=== PATIENT | male | born 1980 | race Caucasian/White ===

== ENCOUNTER 2016-08-31 03:52 | Emergency (ER) | payer SELFPAY ==
[2016-08-31 04:51] VITALS: TEMP 98.5; BMI 30.5
[2016-08-31 05:35] LABS: AUTOMATED BASOPHIL 0.7 % (0-2); AUTOMATED EOSINOPHIL 2.7 % (0-5); AUTOMATED LYMPH 18.1 % (17-44); AUTOMATED MONOCYTE 5.8 % (3-10); AUTOMATED NEUTROPHIL 72.7 % (45-76); MPV 8.5 fL (7.4-10.4)
[2016-08-31 05:52] LABS: PARTIAL THROMB. TIME 23.6 SEC (22-35); PT-INR 1.1
--- NOTE | 2016-08-31 08:00 | EDPRACDOC ---
- General Information Chief Complaint: Skin Rash (not drug induced) Stated Complaint: RASH Time Seen by Provider: 08/31/16 05:07 Information Source: Patient Home Medications: Home Medications Buprenorphine HCl [Subutex] 8 mg PO TID 10/22/15 Amlodipine [Norvasc] 5 mg PO DAILY #30 tab 04/27/16 Aspirin [Ecotrin] 81 mg PO DAILY 05/03/16 Prednisone [Deltasone, Orasone] 10 mg PO .TAPER #42 tab 08/31/16 Allergies/Adverse Reactions: Allergies Allergy/AdvReac Type Severity Reaction Status Date / Time No Known Allergies Allergy Verified 08/31/16 07:34 - History of Present Illness Onset: 0200 HPI: RED RASH BILATERAL LOWER EXTREMITIES STARTED LAST NIGHT NO ALLEVIATING OR AGGRAVATING FACTORS NEVER HAD IT BEFORE THE KITCHEN BURN. NO EXPOSURE TO CHEMICALS PESTICIDES NEW DETERGENTS. NO SYSTEMIC SIGNS OF ILLNESS SUCH SUCH FEVER CHEST PAIN SHORTNESS OF BREATH OTHER NO OR OTHER RASHES ON HIS BODY. ED Past Medical History - History Reviewed Yes Nurses notes reviewed and agree except as marked - Patient Medical History Cardiac History: Reports: Hypertension. Denies: Coronary Artery Disease Psychological History: Reports: Anxiety, Substance Use Disorder (Including anabolic steroid and ? Narcotic.). Denies: Depression - Family Medical History Reports: Hypertension (FATHER AND GRANDFATHER), Diabetes (UNCLE), Stroke (UNCLE) , Cardiac Disorders (VALVULAR). Denies: Cancer - Social Medical History Smoking Status: Former smoker Social History: Reports: Substance Use Disorder (Including anabolic steroid and ? Narcotic.). Denies: Amphetamine Use, Cocaine Use, MDMA (Ecstasy) Use ETOH: None Substance Abuse: None Lives With: Family Lives In: Home EDM Review of Systems - Review of Systems ROS Negative Except as Marked: Yes All systems reviewed and were negative except as marked - Physical Exam Constitutional: Alert (Awake), No apparent distress Oriented to: Time, Person, Place Last recorded Vital Signs: Last Vital Signs Temp 98.5 F 08/31/16 04:46 Pulse 71 08/31/16 07:02 Resp 18 08/31/16 07:02 BP 112/66 08/31/16 07:02 Pulse Ox 96 08/31/16 07:02 Oxygen Pulse Oxygen Saturation 96 O2 Device Room Air Oxygen Flow Rate Fraction of Inspired Oxygen ( FIO2) - HEENT Head: Normal ( normocephalic) Eye Exam: Normal (PERRL, EOMI, Sclera white) Oropharynx: Normal (Pharynx:Moist without exudate,Gums-no swelling) Nose: No Symptoms Reported (septum midline) Neck: Normal (FROM, trachea at midline) - Respiratory/Cardiovascular Respiratory: Normal - CTA (BBS clear to auscultation without adventitious sounds ) Cardiovascular: Normal (RRR without murmur, gallop or rub) - GI Auscultation: Normal (NABS) Palpation: Normal (Soft,No rebound or guarding, non distended) Tenderness: Non tender Nguyen's Sign: Negative - Musculoskeletal Back: Normal (Non-Tender) Extremities: Normal (Normal tone, Pulses 2+ No cyanosis or edema, FROM) - Integumentary Skin: Normal, Warm, Dry, Other (BILATERAL LOWER EXTREMITIES FROM THE SOCK LINE AT THE ANKLE TO THE PROXIMAL CALF BILATERALLY ANTERIORLY AND POSTERIORLY THERE IS DIFFUSE ERYTHEMATOUS MACULAR PAPULAR LESIONS WHICH DO NOT JEANINE THERE NOT PURPLE BUT MORE ERYTHEMATOUS. NOT TENDER TO PALPATION NO CREPITUS. THE FOOT IS WELL PERFUSED WITH DORSALIS PEDIS AND POSTERIOR TIBIALIS PULSES 2+ OF TOES ARE NORMAL FOOT IS NORMAL WITHOUT LESIONS. NO SPLINTER HEMORRHAGES NO JANEWAY LESIONS) Lymphatics: Normal (no adenopathy) - Neurologic Memory Impaired: Normal Motor Function: Normal (Normal tone, Pulses 2+ No cyanosis or edema, FROM) Cranial Nerve: Normal (CN II-X11 intact sensation, strength 5/5) Cerebellar: Normal Mood Description: Normal Perception: Normal - Results 08/31/16 05:15 WBC 13.3 xk/uL (3.8-10.8) H 08/31/16 05:15 RBC 4.98 xM/uL (4.70-6.10) 08/31/16 05:15 Hgb 14.4 g/dL (14.0-18.0) 08/31/16 05:15 Hct 42.5 % (42-52) 08/31/16 05:15 MCV 85 fL (80-94) 08/31/16 05:15 MCH 29.0 pg (27-32) 08/31/16 05:15 MCHC 34.0 g/dl (33-36) 08/31/16 05:15 RDW 15.1 % (11.5-14.5) H 08/31/16 05:15 Plt Count 265 xk/uL (130-400) 08/31/16 05:15 MPV 8.5 fL (7.4-10.4) 08/31/16 05:15 Neut % (Auto) 72.7 % (45-76) 08/31/16 05:15 Lymph % (Auto) 18.1 % (17-44) 08/31/16 05:15 [place] % (Auto) 5.8 % (3-10) 08/31/16 05:15 Eos % (Auto) 2.7 % (0-5) 08/31/16 05:15 Baso % (Auto) 0.7 % (0-2) 08/31/16 05:15 Absolute Neuts (auto) 9.58 xk/uL (1.7-8.2) H 08/31/16 05:15 Absolute Lymphs (auto) 2.39 xk/uL (0.65-4.75) 08/31/16 05:15 PT 11.6 SEC (9.2-11.2) H 08/31/16 05:15 INR 1.1 08/31/16 05:15 APTT 23.6 SEC (22-35) 08/31/16 05:15 Lab Results 08/31/16 08/31/16 05:15 05:15 WBC 13.3 H RBC 4.98 Hgb 14.4 Hct 42.5 MCV 85 MCH 29.0 MCHC 34.0 RDW 15.1 H Plt Count 265 MPV 8.5 Neut % (Auto) 72.7 Lymph % (Auto) 18.1 [place] % (Auto) 5.8 Eos % (Auto) 2.7 Baso % (Auto) 0.7 Absolute Neuts (auto) 9.58 H Absolute Lymphs (auto) 2.39 PT 11.6 H INR 1.1 APTT 23.6 - Additional Information PATIENT IS AFEBRILE VITAL SIGNS NORMAL. PLATELET COUNT AND COAGS WERE NORMAL. RASH OF UNCLEAR ETIOLOGY IS BILATERAL AND DOES NOT APPEAR TO BE INFECTIOUS. WILL DO A BRIEF COURSE OF STEROIDS PATIENT INSTRUCTED RETURN EMERGED PART FOR STIFFENED SYMPTOMS. - Departure Disposition: Home Condition: Good Final Diagnosis: Rash and nonspecific skin eruption Contact dermatitis Qualifiers: Contact dermatitis type: unspecified Contact dermatitis trigger: unspecified trigger Qualified Code(s): L25.9 - Unspecified contact dermatitis, unspecified cause Instructions: Acute Rash (ED) Education/Counseling Given To: Patient Education/Counseling Given Regarding: Diagnosis, Treatment, Prognosis Prescriptions: Prednisone [Deltasone, Orasone] 10 mg PO .TAPER #42 tab
[2016-08-31 08:20] VITALS: BP 134/66; PULSE 69
== END 2016-08-31 08:20 | disposition home or self-care (01) ==
LOC: ED 03:52
DX: L25.9 Unspecified contact dermatitis, unspecified cause (principal)
CPT/HCPCS: 36415; 85025; 85610; 85730; 99283